=== PATIENT | female | born 1970 | race Caucasian/White ===

== ENCOUNTER 2022-03-10 18:03 | Emergency (ER) | payer OTHER ==
[2022-03-10] MEDS ORDERED: BEBTELOVIMAB (EUA) 175 MG/2 ML VIAL IVPUSH ONE (18:16)
[2022-03-10 18:26] VITALS: BP 112/76; PULSE 89; RESP 20; TEMP 98.3; BMI 28.3
== END 2022-03-10 20:18 | disposition home or self-care (01) ==
LOC: JER 18:03
DX: U07.1 COVID-19 (principal)
CPT/HCPCS: 96374; 99283-25; M0222; Q0222